=== PATIENT | male | born 1985 | race African-American/Black ===

== ENCOUNTER 2019-06-09 03:27 | Emergency (ER) | payer SELFPAY ==
--- NOTE | 2019-06-09 05:33 | RADIOLOGY REPORT (SQ) ---
EXAM DESCRIPTION: XR CHEST 2 VIEWS COMPLETED DATE/TME: 06/09/2019 00:00 CLINICAL HISTORY: CP COMPARISON: None. FINDINGS: Frontal and lateral views of the chest. The cardiomediastinal silhouette has normal size and contour. No consolidation, pneumothorax, or pleural effusion. No displaced rib fractures identified. Upper abdominal soft tissues are unremarkable. IMPRESSION: 1. No acute pulmonary process identified.
[2019-06-09 05:52] LABS: ABSOLUTE EOSINOPHILS # (AUTO) 0.1 10^3/uL (0.0-0.6); ABSOLUTE MONOCYTES (AUTO) 0.5 10^3/uL (0.1-1.4); ABSOLUTE NEUT (AUTO) 3.9 10^3/uL (1.7-8.2); BASOPHILS % (AUTO) 0.4 % (0-2); EOSINOPHILS % (AUTO) 1.4 % (0-6); HEMATOCRIT 45.5 % (37.9-51.0); HEMOGLOBIN 15.5 g/dL (13.5-17.0); LYMPHOCYTES % (AUTO) 39.8 % (13-45); MEAN CORPUSCULAR HEMOGLOBIN 29.1 pg (27.0-33.4); MEAN CORPUSCULAR HGB CONC 34.1 g/dL (32.0-36.0); MEAN CORPUSCULAR VOLUME 85 fl (80-97); PLATELET COUNT 230 10^3/uL (150-450); RED BLOOD COUNT 5.34 10^6/uL (4.35-5.55); RED CELL DISTRIBUTION WIDTH 13.5 % (11.5-14.0); SEGMENTED NEUTROPHILS % (AUTO) 51.4 % (42-78); TOTAL CELLS COUNTED % (AUTO) 100 %; WHITE BLOOD COUNT 7.5 10^3/uL (4.0-10.5)
[2019-06-09 06:07] LABS: ALBUMIN 4.8 g/dL (3.5-5.0); ALKALINE PHOSPHATASE 99 U/L (38-126); ANION GAP 11 (5-19); ASPARTATE AMINO TRANSFERASE 31 U/L (17-59); BILIRUBIN,DIRECT 0.4 mg/dL (0.0-0.4); BILIRUBIN,TOTAL 0.7 mg/dL (0.2-1.3); BLOOD UREA NITROGEN 8 mg/dL (7-20); CALCIUM 10.3 mg/dL (8.4-10.2); CARBON DIOXIDE 24 mmol/L (22-30); CHLORIDE 106 mmol/L (98-107); CREATINE KINASE 459 U/L (55-170); GLUCOSE 105 mg/dL (75-110); POTASSIUM 4.1 mmol/L (3.6-5.0); TOTAL PROTEIN 8.3 g/dL (6.3-8.2)
[2019-06-09 06:19] LABS: CREATINE KINASE MB 2.24 ng/mL (<4.55); TROPONIN I < 0.012 ng/mL
[2019-06-09] MEDS ORDERED: PREDNISONE 20 MG TABLET PO ONE (07:52)
--- NOTE | 2019-06-09 07:58 | ER Document Report ---
ED General - General Chief Complaint: Chest Pain Stated Complaint: CHEST PAIN Primary Care Provider: JON FREEMAN MD [Primary Care Provider] - Follow up as needed Notes: 33 year old male arrives with complaints of a month of chest pain. Awoke from sleep overnight and worried fiancee who wanted him to be checked. No fever or chills. No sob. He does have asthma and is using his albuterol. Current everyday smoker also. Thc use also. Denies other drug use. "No hard drugs." TRAVEL OUTSIDE OF THE [place] IN LAST 30 DAYS: No - HPI Patient complains to provider of: chest pain Onset: Other - a month Severity: Moderate Associated symptoms: Nonproductive cough Exacerbated by: Denies Relieved by: Denies - Related Data Allergies/Adverse Reactions: Sulfa (Sulfonamide Antibiotics) Allergy (Verified 01/22/13 19:51) Past Medical History - Social History Smoking Status: Current Every Day Smoker Family History: Hypertension Patient has suicidal ideation: No Patient has homicidal ideation: No Pulmonary Medical History: Reports: Hx Bronchitis Past Surgical History: Reports: Hx Genitourinary Surgery - circumscised - Immunizations Immunizations up to date: Yes Hx Diphtheria, Pertussis, Tetanus Vaccination: Yes Review of Systems - Review of Systems Constitutional: No symptoms reported EENT: No symptoms reported Cardiovascular: See HPI Respiratory: No symptoms reported Gastrointestinal: No symptoms reported Genitourinary: No symptoms reported Male Genitourinary: No symptoms reported Musculoskeletal: No symptoms reported Skin: No symptoms reported Hematologic/Lymphatic: No symptoms reported Neurological/Psychological: No symptoms reported Physical Exam - Vital signs Vitals: Temp Pulse Resp BP Pulse Ox 97.6 F 74 18 122/79 98 06/09/19 03:38 06/09/19 03:38 06/09/19 03:38 06/09/19 03:38 06/09/19 03:38 Interpretation: Normal - General General appearance: Appears well, Alert In distress: None - HEENT Head: Normocephalic, Atraumatic Eyes: Normal Pupils: PERRL Ears: Normal Nasal: Normal Mucous membranes: Normal Pharynx: Normal Neck: Normal - Respiratory Respiratory status: No respiratory distress Chest status: Nontender Breath sounds: Wheezing - exp wheeze posteriorly Chest palpation: Normal - Cardiovascular Rhythm: Regular Heart sounds: Normal auscultation Murmur: No - Abdominal Inspection: Normal Distension: No distension Bowel sounds: Normal Tenderness: Nontender Organomegaly: No organomegaly - Back Back: Nontender - Extremities General upper extremity: Normal inspection, Nontender, Normal color, Normal ROM, Normal temperature General lower extremity: Normal inspection, Nontender, Normal color, Normal ROM, Normal temperature. No: Mohinder's sign - Neurological Neuro grossly intact: Yes Cognition: Normal Orientation: AAOx4 Mariella Coma Scale Eye Opening: Spontaneous Mariella Coma Scale Verbal: Oriented [employer] Coma Scale Motor: Obeys Commands [employer] Coma Scale Total: 15 Speech: Normal Sensory: Normal - Psychological Associated symptoms: Normal affect, Normal mood - Skin Skin Temperature: Warm Skin Moisture: Dry Skin Color: Normal Course - Re-evaluation Re-evalutation: 06/09/19 07:59 I discussed follow up, taking ranitidine regularly and smoking cessation and he expressed understanding. 06/09/19 08:04 MDM With a month of pain and asthma as contributor I see no need for 2nd set of cardiac markers. I feel his resp disease is playing a role in this presentation and we discussed this. Additionally he just started ranitidine which is reasonable and we discussed continuing this. - Vital Signs Vital signs: Temp Pulse Resp BP Pulse Ox 98.2 F 70 16 124/82 98 06/09/19 08:05 06/09/19 08:05 06/09/19 08:05 06/09/19 08:05 06/09/19 08:05 - Laboratory Result Diagrams: 06/09/19 05:30 06/09/19 05:30 Laboratory results interpreted by me: 06/09/19 05:30 Calcium 10.3 H Creatine Kinase 459 H Total Protein 8.3 H - Diagnostic Test Radiology reviewed: Reports reviewed - EKG Interpretation by [facility] EKG shows normal: Sinus rhythm, [place] Rate: Normal Rhythm: NSR Discharge - Discharge Clinical Impression: Asthma exacerbation Qualifiers: Asthma severity: moderate Asthma persistence: unspecified Qualified Code(s): J45.901 - Unspecified asthma with (acute) exacerbation Condition: Good Disposition: HOME, SELF-CARE Instructions: Asthma ([facility]), Stop Smoking ([facility]) Additional Instructions: Stop smoking. Rest. Take the medicine as directed. Continue with zantac. Return here for any problems or any concerns. Prescriptions: Prednisone 10 mg PO DAILY #1 [id number] Referrals: JON FREEMAN MD [Primary Care Provider] - Follow up as needed
[2019-06-09 08:07] VITALS: BP 124/82
--- NOTE | 2019-06-10 18:48 | EKG REPORT ---
SEVERITY:- NORMAL ECG - SINUS RHYTHM ST ELEV, PROBABLE NORMAL EARLY REPOL PATTERN : Confirmed by: Neris Peralta 10-Jun-2019 18:47:04
== END 2019-06-09 08:14 | disposition home or self-care (01) ==
LOC: ER 03:27
DX: J45.901 Unspecified asthma with (acute) exacerbation (principal); R07.9 Chest pain, unspecified; R05 Cough; F17.200 Nicotine dependence, unspecified, uncomplicated; Z79.899 Other long term (current) drug therapy; Z88.2 Allergy status to sulfonamides
CPT/HCPCS: 93005; 99285; 36415; 82553; 82550; 85025; 80053; 84484; 71046; 93010; J7512